=== PATIENT | female | born 1960 | race Caucasian/White ===

== ENCOUNTER 2023-03-06 13:26 | Observation (INO) ==
--- NOTE | 2023-03-06 13:48 | Emergency Department Note ---
ED Provider Note History of Present Illness Chief Complaint: Fall Stated Complaint: FALL, LAC Time Seen by Provider: 03/06/23 13:48 This is a [id number] 63-year-old female who presents to the emergency department with injuries sustained secondary to a fall that occurred earlier today while hiking. She was walking along a trail when she slipped and slid several feet down a hill side impacting her elbow off a rock. She did not hit her head but does have some left-sided neck discomfort. She endorses a laceration to the back of her left elbow which is contaminated with debris. She did not think she was able to clean this out well enough so came to the emergency department. Has not taken anything for the pain yet. Does not believe she injured anything else, denies any chest pain, back pain, abdominal pain, difficulty walking or pain with walking, numbness tingling or weakness in her upper or lower extremities. She is unsure when her last tetanus shot was updated and believes it needs to be updated today. Does not take any blood thinners. Not immunocompromised. Home Medications Medication Instructions Recorded Confirmed Type Glucosamine 1 tab PO QAM 03/06/23 03/06/23 History Multi Vitamin 1 tab PO QAM 03/06/23 03/06/23 History Tums 2 tab PO HS 03/06/23 03/06/23 History biotin 1 tab PO QAM 03/06/23 03/06/23 History lisinopril 10 mg tablet 10 mg PO QAM 03/06/23 03/06/23 History omeprazole 20 mg capsule,delayed 20 mg PO QAM 03/06/23 03/06/23 History release Allergies Allergy/AdvReac Type Severity Reaction Status Date / Time No Known Allergies Allergy Unverified 03/06/23 18:07 Past Med/Surg History Social History Smoking Status: Never smoker Preferred Language: Emir[place] Feels Safe at Home: Yes Physical Exam Vital Signs Vital Signs - 24 hr 03/06/23 13:39 Temperature 98.6 F Temperature Source Temporal Artery Scan Pulse Rate 54 L Respiratory Rate 20 Respiratory Effort / Characteristics Non-Labored Spontaneous Respiratory Depth Normal Respiratory Pattern Regular Blood Pressure 145/88 H Blood Pressure Mean 107 Blood Pressure Position Sitting Pulse Oximetry 97 Oxygen Delivery Method Room Air Sepsis Recent Fever Within 48 Hours No Sepsis New/Unexplained Change in Mental Status No Sepsis Action Taken by Nursing No Action Required CONSTITUTIONAL: Well developed, well nourished, in no acute distress. HEAD: Normocephalic, atraumatic. No Mcgraw's sign or raccoon eyes. No bony skull deformities. EYES: PERRL, conjunctivae normal, extraocular muscles intact. EARS/NOSE/MOUTH/THROAT: External ears no injury, no hemotympanum, no drainage. Nose with no injury or epistaxis. No dental abnormalities. No oral injuries. NECK: Patient able to rotate bilaterally. There is some reproducible tenderness on the left side of the neck towards the base. There is no midline spinous process tenderness. RESPIRATORY: Breathing unlabored and symmetric. Lungs clear to auscultation bilaterally. CARDIOVASCULAR: Regular rate and rhythm. No murmurs, rubs, or gallops. CHEST: Nontender, no crepitus or ecchymosis. ABDOMEN: Normal bowel sounds. Soft, nontender. No masses or ecchymosis. No rigidity. MUSCULOSKELETAL: Moves right upper and bilateral lower extremities at all joints without pain or difficulty. Pelvis stable, nontender. Preserved straight leg raise bilaterally. Left upper extremity: Reproducible tenderness in the left trapezius musculature. There is a deep open wound over the posterior elbow overlying the olecranon region. This is heavily contaminated with organic material and appears to be deep possibly infiltrating into the joint. There is associated tenderness in this region. Patient able to actively flex and extend at the elbow. Wrist and fingers with full range of motion no additional injury identified in this extremity. SKIN: [place], warm, dry. NEUROLOGIC: Alert and oriented x 3. GCS 15. CN II-XII intact. Strength 5+ in bilateral upper and lower extremities. Sensation intact in bilateral upper and lower extremities. PSYCHIATRIC: Appropriate. Normal affect. Course Administered Medications Oxycodone/Acetaminophen (Oxycodone/Acetaminophen 5mg/325mg Tab) 1 - 2 tab PO Q4H PRN PRN Reason: Pain Stop: 03/20/23 17:37 Last Admin: 03/06/23 18:50 Dose: 1 tab Documented By: NA Discontinued Medications Acetaminophen (Acetaminophen 500 Mg Tab) 1,000 mg PO NOW STA Stop: 03/06/23 14:02 Last Admin: 03/06/23 14:35 Dose: 1,000 mg Documented By: TBS Diphtheria/Pertussis/Tetanus Vacc (Diphtheria/Tetanus/Pertussis Vaccine (Tdap, Age 7+Yrs) 0.5ml Syr/Vl) 0.5 ml IM .ONCE ONE Stop: 03/06/23 14:02 Last Admin: 03/06/23 14:36 Dose: 0.5 ml Documented By: FALGUNI Cefazolin Sodium (Ancef 2000mg) 2,000 mg in 15 mls @ 3.75 mls/min IV NOW STA Stop: 03/06/23 15:26 Last Admin: 03/06/23 15:41 Dose: 3.75 mls/min Documented By: CANDI Lidocaine/Epinephrine (Lido/Epinephrine/Sod Bicarb 50 Ml Vial) 5 ml INFIL NOW ONE Stop: 03/06/23 14:51 Last Admin: 03/06/23 15:13 Dose: 5 ml Documented By: [id number] Lorazepam (Lorazepam 2 Mg/1 Ml Vial) Confirm Administered Dose 2 mg .ROUTE .STK- MED ONE Stop: 03/06/23 16:25 Last Admin: 03/06/23 16:31 Dose: Not Given Documented By: CANDI Lorazepam (Lorazepam 2 Mg/1 Ml Vial) 0.5 mg IV NOW STA Stop: 03/06/23 16:31 Last Admin: 03/06/23 16:31 Dose: 0.5 mg Documented By: CANDI Miscellaneous Information (Patient's Allergy Info Needs Entered) 1 each N/A Q30M [facility] Stop: 04/05/23 17:59 Last Admin: 03/06/23 18:07 Dose: Not Given Documented By: Admin: 03/06/23 17:58 Dose: 1 each Documented By: CANDI Medical Decision Making Differential Diagnosis Fracture, dislocation, subluxation, open joint, laceration, foreign body, c ontusion, hematoma, sprain, strain, intracranial hemorrhage, among other pathology Imaging Data Radiologist's Impression: Cervical Spine CT 03/06/23 14:01 CT SCAN OF THE CERVICAL SPINE CLINICAL HISTORY: Fall. COMPARISON STUDY: No priors. TECHNIQUE: CT scan of the cervical spine is performed from the skull base to the upper thoracic spine. Images are reviewed in the axial, sagittal, and coronal planes. IV contrast was not administered for this examination. A dose lowering technique was utilized adhering to the principles of ALARA. CT DOSE: 1033.13 mGy.cm FINDINGS: Skeletal structures: The skeletal structures are osteopenic. There is no evidence of fracture or subluxation involving the cervical spine. 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 Vertebral body height and alignment are maintained. There is straightening of the cervical lordosis. Anterior osteophytes are seen throughout. The odontoid process and lateral masses are intact. The atlantoaxial articulation is preserved. The spinous processes appear intact. Intervertebral discs: There is mild to moderate disc space narrowing at C4-C5, C5-C6, and C6-C7. Central canal: Grossly patent. Soft tissues: The prevertebral and paraspinous soft tissues are within normal limits. There is mild atherosclerotic calcification of the carotid bulbs. The thyroid gland is mildly enlarged and heterogeneous. Calvarium: The visualized calvarium at the skull base appears intact. Brain parenchyma: Partially visualized brain parenchyma at the skull base is within normal limits. Sinuses and mastoids: The visualized paranasal sinuses are clear. The mastoid air cells are well pneumatized. Lung apices: Clear as visualized. IMPRESSION: There is no evidence of fracture or subluxation involving the cervical spine. ACT 112: Negative or not required by law. Electronically signed by: Vincent Lau M.D. 03/06/2023 3:19 PM Elbow X-Ray 03/06/23 14:01 XR elbow LT min 3V routine CLINICAL HISTORY: fall, posterior laceration contaminated COMPARISON: None FINDINGS: Alignment of the left elbow is anatomic. No acute fracture is identified. There is no evidence for a left elbow joint effusion. Note is made of a deep laceration of the posterior left elbow. Laceration appears to extend to the olecranon. Several punctate densities within the laceration are noted. IMPRESSION: 1. No acute fracture. No evidence for a left elbow joint effusion. 2. Left elbow laceration which appears to extend to the olecranon. Several punctate densities/debris within the laceration could be on or just deep to the skin. ACT 112: Negative or not required by law. Electronically signed by: Orlin Wood M.D. 03/06/2023 2:[address] 03/06/23 14:01 CT OF THE HEAD WITHOUT CONTRAST CLINICAL HISTORY: Fall, left sided neck pain COMPARISON STUDY: No previous studies for comparison. TECHNIQUE: Helical axial images of the head were obtained without IV contrast. Automated exposure control was utilized for the study. A dose lowering technique was utilized adhering to the principles of ALARA. FINDINGS: No acute intracranial hemorrhage, midline shift or mass effect is present. The ventricular system is unremarkable. The basal cisterns are patent. No extra-axial collections are present. There are no findings to suggest acute dural sinus thrombosis or acute territorial infarct. No significant calvarial abnormalities are present. Visualized portions of the sinuses and mastoid air cells are clear. IMPRESSION: 1. No acute intracranial findings. 2. No acute calvarial fracture. ACT 112: Negative or not required by law. Electronically signed by: Orlin Wood M.D. 03/06/2023 3:16 PM MDM Narrative This is a 63-year-old female who presents to the emergency department with a laceration to the left elbow heavily contaminated with organic debris as well as some mild left-sided neck pain secondary to a fall that occurred while hiking. See above for further details. Well-appearing in no acute distress. Does have some reproducible left-sided neck tenderness at the base of the neck. There is tenderness over the posterior elbow with an associated laceration overlying the joint which possibly communicates with the joint heavily contaminated with organic debris. She is neurovascularly intact. No additional injuries were identified. She was offered pain medication and accepted a dose of Tylenol, did not require stronger pain medication. Cool compress was administered. IV inserted, Ancef administered. She was given a small dose of Ativan for some mild anxiety. Tdap was updated. CT head and neck was obtained demonstrating no acute process. X-ray of the left elbow was obtained no acute fracture or evidence of left elbow joint effusion. Laceration appears to extend to the olecranon and there are several punctate densities within the laceration, there is no evidence of joint infiltration. I discussed with reading radiologist Dr. Wood whether CT of the elbow was indicated to rule out joint involvement, he feels confident there is no joint involvement, no CT required. Case was discussed with ED attending Dr. Swanson who evaluated patient at bedside. Due to depth and contamination of the patient's wound, case was initially reviewed with Dr. De La Torre (orthopedics on-call) who recommended washout in the emergency department, loose closure, splinting, and close follow-up with orthopedics. I anesthetized the wound with 8 mL lidocaine 1% with epinephrine to facilitate washout and closure. I used 1.5 L normal saline with a combination of Bailey pressure irrigation, manual saline irrigation, forcep removal, and scrubbing with gauze, however was unable to remove a significant amount of organic material which tracks deep into the patient's forearm distal to the wound. I spoke with Dr. De La Torre again and expressed my concerns that this wound would not be able to be properly irrigated/cleaned at the bedside and did not feel comfortable closing it with that much organic material still present in the wound. He is agreeable with admitting the patient overnight and will take the patient to the OR tomorrow for washout and debridement. He will place orders for admission. I discussed this with the patient and she was agreeable with this plan. A dressing of Vaseline gauze, Telfa nonstick gauze, roll gauze, Darrion wrap was applied to the elbow. Impression Laceration of elbow, left, complicated, Fall from slip, trip, or stumble, Strain of left trapezius muscle Discharge Plan Visit Data Chief Complaint: Fall Stated Complaint: FALL, LAC ED Provider: Reilly Swanson ED Midlevel Provider: Paul Sharp Discharge Problem: Laceration of elbow, left, complicated, Fall from slip, trip, or stumble, Strain of left trapezius muscle Patient Disposition: Admitted As Inpatient Condition: Good Discharge Instructions Interventions: ED Discharge Assessment Last Done: 03/06/23 20:17 Laceration of elbow, left, complicated Qualifiers: Encounter type: initial encounter Qualified Code(s): S51.012A - Laceration without foreign body of left elbow, initial encounter
[2023-03-06] MEDS ORDERED: DIPHTHERIA/TETANUS/PERTUSSIS Vaccine (Tdap, Age 7+yrs) 0.5mL SYR/VL IM ONE (14:01)
[2023-03-06] MEDS ORDERED: ACETAMINOPHEN 500 MG TAB PO STA (14:01)
--- NOTE | 2023-03-06 14:40 | XRay Report ---
XR elbow LT min 3V routine CLINICAL HISTORY: fall, posterior laceration contaminated COMPARISON: None FINDINGS: Alignment of the left elbow is anatomic. No acute fracture is identified. There is no evid ence for a left elbow joint effusion. Note is made of a deep laceration of the posterior left elbow. Laceration appears to extend to the olecranon. Several punctate densities within the laceration are n oted. IMPRESSION: 1. No acute fracture. No evidence for a left elbow joint effusion. 2. Left elbow laceration which appears to extend to the olecranon. Several punctate densities/debris within the laceration could be on or just deep to the skin. ACT 112: Negative or not required by law. Electronically signed by: Orlin Wood M.D. 03/06/2023 2:38 PM
[2023-03-06] MEDS ORDERED: LIDO/EPINEPHRINE/SOD BICARB 50 ML VIAL INFIL ONE (14:50)
--- NOTE | 2023-03-06 15:18 | CT Scan Report ---
CT OF THE HEAD WITHOUT CONTRAST CLINICAL HISTORY: Fall, left sided neck pain COMPARISON STUDY: No previous studies for comparison. TECHNIQUE: Helical axial images of the head were obtained without IV contrast. Automated exposure con trol was utilized for the study. A dose lowering technique was utilized adhering to the principles o f ALARA. FINDINGS: No acute intracranial hemorrhage, midline shift or mass effect is present. The ventricular system is unremarkable. The basal cisterns are patent. No extra-axial collections are present. There are no findings to suggest acute dural sinus thrombosis or acute territorial infarct. No significant calvarial abnormalities are present. Visualized portions of the sinuses and mastoid air cells are estefania ar. IMPRESSION: 1. No acute intracranial findings. 2. No acute calvarial fracture. ACT 112: Negative or not required by law. Electronically signed by: Orlin Wood M.D. 03/06/2023 3:16 PM
--- NOTE | 2023-03-06 15:21 | CT Scan Report ---
CT SCAN OF THE CERVICAL SPINE CLINICAL HISTORY: Fall. COMPARISON STUDY: No priors. TECHNIQUE: CT scan of the cervical spine is performed from the skull base to the upper thoracic spine . Images are reviewed in the axial, sagittal, and coronal planes. IV contrast was not administered fo r this examination. A dose lowering technique was utilized adhering to the principles of ALARA. CT DOSE: 1033.13 mGy.cm FINDINGS: Skeletal structures: The skeletal structures are osteopenic. There is no evidence of fracture or subl uxation involving the cervical spine. There is developmental absence of both the anterior and posteri or rings of C1. Vertebral body height and alignment are maintained. There is straightening of the cer vical lordosis. Anterior osteophytes are seen throughout. The odontoid process and lateral masses ar e intact. The atlantoaxial articulation is preserved. The spinous processes appear intact. Intervertebral discs: There is mild to moderate disc space narrowing at C4-C5, C5-C6, and C6-C7. Central canal: Grossly patent. Soft tissues: The prevertebral and paraspinous soft tissues are within normal limits. There is mild a therosclerotic calcification of the carotid bulbs. The thyroid gland is mildly enlarged and heterogen eous. Calvarium: The visualized calvarium at the skull base appears intact. Brain parenchyma: Partially visualized brain parenchyma at the skull base is within normal limits. Sinuses and mastoids: The visualized paranasal sinuses are clear. The mastoid air cells are well pneu matized. Lung apices: Clear as visualized. IMPRESSION: There is no evidence of fracture or subluxation involving the cervical spine. ACT 112: Negative or not required by law. Electronically signed by: Vincent Lau M.D. 03/06/2023 3:19 PM
[2023-03-06] MEDS ORDERED: ceFAZolin 2000MG 2,000 MG/15 ML SYR IV STA (15:23)
--- NOTE | 2023-03-06 15:54 | Emergency Department Note ---
ED Visit Note I have personally evaluated this patient examined her and reviewed the pertinent labs and data. I have discussed the case with Paul Sandoval, the physician patient clerical assistant and agree with the plan. Please refer to the PA note. This patient suffered a mechanical fall. On my exam she has a contaminated laceration over olecranon process. The x-ray is unremarkable. On my exam, she is neurologically neurovascular intact. we will plan to irrigate it out and give her antibiotics here as well as a prescription for home. She will need close follow-up. I talked her at length about observing for signs of infection such as redness, fever, pus drainage. .
[2023-03-06] MEDS ORDERED: LORazepam 2 MG/1 ML VIAL ONE (16:24)
[2023-03-06] MEDS ORDERED: LORazepam 2 MG/1 ML VIAL IV STA (16:30)
[2023-03-06] MEDS ORDERED: ONDANSETRON INJ 2 MG/ML 2 ML VIAL IV PRN (17:38)
[2023-03-06] MEDS: Patient's ALLERGY Info needs ENTERED SCH ×2 (17:58→18:07)
[2023-03-06] MEDS: oxyCODONE/ACETAMINOPHEN 5mg/325mg TAB PO PRN (18:50)
[2023-03-06] MEDS: ACETAMINOPHEN 325 MG TAB PO PRN (21:26)
[2023-03-07] MEDS: oxyCODONE/ACETAMINOPHEN 5mg/325mg TAB PO PRN ×2 (00:04→06:38)
[2023-03-07] MEDS: ACETAMINOPHEN 325 MG TAB PO PRN (03:59)
--- NOTE | 2023-03-07 09:15 | Anesthesiology Consultation ---
Date of Service March 07, 2023 Assessment & Plan Chart Review Chart Review: Acceptable Risk for Surgery and Patient NOT seen in Pre Admission Testing Consults Requested none ASA ASA2 Proposed Anesthesia Anesthesia Type: MAC (back up GA) Risk / Benefits Reviewed With: PT / POA / Parent / Guardian, Accepts Plan and Informed Consent Obtained History Surgery Operation Date: 03/07/23 09:05 Proposed Procedures p Left Elbow Incision and Drainage - Stevan De La Torre, DO Height/Weight Height: 5 ft 8 in Weight: 98.3 kg Allergies Allergy/AdvReac Type Severity Reaction Status Date / Time No Known Allergies Allergy Unverified 03/06/23 18:07 Medications Home Medications Medication Instructions Recorded Confirmed Last Taken Glucosamine 1 tab PO QAM 03/06/23 03/06/23 03/06/23 Multi Vitamin 1 tab PO QAM 03/06/23 03/06/23 03/06/23 Tums 2 tab PO HS 03/06/23 03/06/23 03/05/23 biotin 1 tab PO QAM 03/06/23 03/06/23 03/06/23 lisinopril 10 mg tablet 10 mg PO QAM 03/06/23 03/06/23 03/06/23 omeprazole 20 mg capsule,delayed 20 mg PO QAM 03/06/23 03/06/23 Unknown release Active Medications Generic Name Dose Route Start Last Admin Trade Name Freq PRN Reason Stop Dose Admin Acetaminophen 650 mg 03/06/23 17:38 03/07/23 03:59 Acetaminophen 325 Mg Tab PO 04/05/23 17:37 650 mg Q6H PRN Administration Fever or headache Oxycodone/Acetaminophen 1 - 2 tab 03/06/23 17:38 03/07/23 06:38 Oxycodone/Acetaminophen 5mg/325mg Tab PO 03/20/23 17:37 2 tab Q4H PRN Administration Pain NPO Date Last Intake of Fluids: 03/06/23 Time Last Intake of Fluids: 20:00 Date Last Intake of Solids: 03/06/23 Time Last Intake of Solids: 20:00 Exercise / Class Metabolic Activity II 4-5 Yardwork/Stairs/Walk up hill Past Anesthesia History No Hx of Anesthesia Complications and No Family Hx of Anesthesia Complications History of PONV No Hx of PONV and No Hx of Motion Sickness Social History Smoking Status: Never smoker Hx Alcohol Use: No Hx Substance Use: No Review of Systems ROS Unobtainable: All systems reviewed & are unremarkable except as noted in HPI & below Physical Exam Vital Signs Last Vital Signs Temp 36.8 C 03/07/23 07:18 Pulse 69 03/07/23 07:18 Resp 18 03/07/23 07:18 BP 115/73 03/07/23 07:18 Pulse Ox 93 03/07/23 07:18 O2 Del Method Room Air 03/07/23 07:18 ENMT Mouth: no TMJ abnormality Thyromental Distance: > or= 3.5 Finger Breadths Mallampati Class: II Neck normal visual inspection and trachea midline; neck extension not limited Respiratory normal respiratory effort Auscultation: lungs clear to auscultation bilaterally Cardiovascular Rate/Rhythm: regular rate and regular rhythm Heart Sounds: no murmur Musculoskeletal Spine: normal cervical ROM Extremities: full ROM of extremities Neurologic moves all extremities Psychiatric Orientation: alert and oriented x 3
[2023-03-07] MEDS ORDERED: fentaNYL citrate PF 100 MCG/2 ML VIAL IV PRN (09:20)
[2023-03-07] MEDS ORDERED: ATROPINE SULFATE 0.1 MG/ML 10ML SYR IV PRN (09:20)
[2023-03-07] MEDS ORDERED: ePHEDrine sulfate 50 MG/ML AMP IV PRN (09:20)
[2023-03-07] MEDS ORDERED: ONDANSETRON INJ 2 MG/ML 2 ML VIAL IV PRN ×2 (09:20→10:18)
[2023-03-07] MEDS ORDERED: fentaNYL citrate PF 100 MCG/2 ML VIAL ONE (09:33)
[2023-03-07] MEDS ORDERED: MIDAZOLAM HCL 1 MG/ML 2ML VIAL ONE (09:33)
--- NOTE | 2023-03-07 09:41 | History & Physical Bridge Note ---
Date of Service March 07, 2023 History & Physical Bridge Note I have examined the patient, reviewed the History & Physical and in the interval since the performance of the History & Physical I have noted the following changes of clinical significance: no changes noted. Met with the patient I had a discussion regarding risk benefits potential complications of left elbow irrigation and debridement. After reviewing these she elected to proceed with the procedure and written consent was obtained
--- NOTE | 2023-03-07 09:44 | History & Physical Report ---
Date of Service March 07, 2023 Assessment & Plan (1) Laceration of elbow, left, complicated: Plan: 63-year-old female with left elbow laceration -Pain control -Plan for left elbow irrigation and debridement Encounter type: initial encounter Qualified Code(s): S51.012A - Laceration without foreign body of left elbow, initial encounter Admission and Anticipated Discharge Date Admission Date: March 06, 2023 History of Present Illness Primary Care Provider: NO PCP . 63-year-old female [id number] presenting after sustaining a fall while hiking onto her left elbow. This resulted in an approximately 2 cm laceration over the tip of the olecranon. She was noted to have some contamination of the wound at the emergency department. Emergency room personnel was concerned due to the contaminated nature from debris in the novoa that this needed formal washout in the emergency department. Patient was admitted to orthopedic service for planned superficial washout Allergies Allergy/AdvReac Type Severity Reaction Status Date / Time No Known Allergies Allergy Unverified 03/06/23 18:07 Home Medications Medication Instructions Recorded Confirmed Type Glucosamine 1 tab PO QAM 03/06/23 03/06/23 History Multi Vitamin 1 tab PO QAM 03/06/23 03/06/23 History Tums 2 tab PO HS 03/06/23 03/06/23 History biotin 1 tab PO QAM 03/06/23 03/06/23 History lisinopril 10 mg tablet 10 mg PO QAM 03/06/23 03/06/23 History omeprazole 20 mg capsule,delayed 20 mg PO QAM 03/06/23 03/06/23 History release Past Med/Surg History Social History Smoking Status: Never smoker Hx Alcohol Use: No Hx Substance Use: No Preferred Language: Upper Sorbian Communication Ability: Effective Fitness Manager Required: No Beliefs That Will Affect Care: None Current Living Situation: Spouse Other Information That Helps Us Care for You: No Feels Safe at Home: Yes Safety Concerns: Feels Safe At This Time Assistive Devices: Glasses Physical Exam 2 Constitutional: Gen: NAD, AAOx3 Musculoskeletal: LUE - 2cm laceration over olecranon - silt a/m/r/u - elbow AROM: flexion 150, extension 0, 60 pronation, 60 supination - fires delt/bi/tri/wf/we/irineo + rad Results & Data Vital Signs (Past 12 Hours) Vital Signs Temp Pulse Resp BP Pulse Ox O2 Del Method 03/07/23 07:18 36.8 C 69 18 115/73 93 Room Air 03/06/23 21:43 121/77
[2023-03-07] MEDS ORDERED: BUPIVACAINE 0.25% PF 30 ML VIAL ONE (09:52)
[2023-03-07] MEDS ORDERED: traMADol HCL 50 MG TABLET PO PRN (10:18)
[2023-03-07] MEDS ORDERED: NALOXONE HCL 0.4 MG/1 ML VIAL/CARP IV PRN (10:18)
[2023-03-07] MEDS ORDERED: ONDANSETRON INJ 2 MG/ML 2 ML VIAL ONE (10:18)
[2023-03-07] MEDS ORDERED: PROPOFOL IV EMULSION 10 MG/ML 20 ML VIAL IV ONE (10:18)
[2023-03-07] MEDS ORDERED: METOCLOPRAMIDE HCL INJ 5 MG/ML 2 ML VIAL IV PRN (10:18)
[2023-03-07] MEDS ORDERED: MAGNESIUM HYDROXIDE SUSP 30 ML UDC PO PRN (10:18)
[2023-03-07] MEDS ORDERED: bisacodyL 10 MG SUPP PR PRN (10:18)
[2023-03-07] MEDS ORDERED: LIDOCAINE 2% 2 ML VIAL/AMP(20MG/ML) INFIL ONE (10:18)
--- NOTE | 2023-03-07 10:18 | Post Operative Brief Note ---
Immediate Post Op Note v1 Date of Surgery March 07, 2023 Pre & Post Diagnosis Operation Date: 03/07/23 09:05 Pre-Op Diagnosis: Elbow Laceration Post-Op Diagnosis: Elbow Laceration I identified the patient and participated in the time-out.: Yes Procedure Operation Date: 03/07/23 09:05 Actual Procedures p Left Elbow Incision and Drainage(Not Applicable) - Stevan De La Torre DO Surgeon Stevan De La Torre DO Investigator Narcotics none Estimated Blood Loss 2 Findings Consistent with Post-Op Diagnosis see dictation Complications none
--- NOTE | 2023-03-07 10:24 | Operative Report ---
Post Operative Report Pre & Post Diagnosis Operation Date: 03/07/23 09:05 Pre-Op Diagnosis: Elbow Laceration Post-Op Diagnosis: Elbow Laceration I identified the patient and participated in the time-out.: Yes Procedure Operation Date: 03/07/23 09:05 Actual Procedures p Left Elbow Incision and Drainage(Not Applicable) - Stevan De La Torre DO Surgeon Stevan De La Torre, Insurance Billing Specialist none Estimated Blood Loss 2 Findings Consistent with Post-Op Diagnosis see dictation Specimens none Complications none Indications 63-year-old female [id number] who fell yesterday while hiking and sustained a laceration of the posterior aspect of her left olecranon. Patient was seen in the emergency department. Emergency room personnel were concerned about the contamination of the wound and the patient needed a formal irrigation debridement in the operative suite. Patient was admitted under orthopedic service for planned left elbow irrigation and debridement. I met with the patient preoperatively and we do lengthy discussion regarding risk benefits potential complications of left elbow irrigation and debridement. After reviewing these she elected to proceed with surgical intervention and written consent was obtained Description of Procedure Patient was appropriate marked and identified in the preoperative holding area. Patient had previously received antibiotics. Patient was then taken back to the operative suite where they received anesthesia. The extremity was then prepped and draped in the standard orthopedic fashion. Timeout was then performed. 10 cc of local anesthetic was injected in the subcutaneous tissues to anesthetize the tissue surrounding the laceration. The area was then copiously irrigated with normal saline solution. A rongeur was used to debride any nonviable tissue and debris. Wound was noted to be completely superficial. There is no extension into the joint space. Subcutaneous tissues were then closed using 3-0 Vicryl followed by 3-0 nylon in an interrupted fashion for the skin. A sterile dressing of Xeroform 4 x 4 gauze web roll and Darrion wrap was then applied. Patient tolerated procedure well was taken to recovery room in hemodynamic stable condition I attest to the content of the Intraoperative Record and any orders documented therein. Any exceptions are noted below.
[2023-03-07] MEDS ORDERED: SODIUM CHLORIDE 0.9% 1,000 ML IV SCH (10:30)
--- NOTE | 2023-03-07 10:33 | Anesthesiology Progress Note ---
Date of Service March 07, 2023 Anesthesia Post Procedure Vital Signs Vital Signs: Temp Pulse Pulse Resp BP BP Pulse Ox 03/07/23 07:18 36.8 C 69 18 115/73 93 03/06/23 21:43 121/77 03/06/23 21:10 36.7 C 77 18 169/88 H 98 03/06/23 20:46 76 18 136/72 97 03/06/23 18:53 67 17 154/99 H 99 03/06/23 13:39 37 C 54 L 20 145/88 H 97 O2 Del Method 03/07/23 07:18 Room Air 03/06/23 21:43 03/06/23 21:10 Room Air 03/06/23 20:46 Room Air 03/06/23 18:53 Room Air 03/06/23 13:39 Room Air Pain Intensity Left Elbow: Pain Intensity: 7 Transfer of Care Handoff Completed per policy Notes Mental Status: alert / awake / arousable Patient Amnestic to Procedure: Yes Nausea / Vomiting: adequately controlled Pain: adequately controlled Airway Patency, RR, SpO2: stable & adequate BP & HR: stable & adequate Hydration State: stable & adequate Anesthetic Complications: no major complications apparent and Pt Satisfied with anesthetic care
[2023-03-07] MEDS ORDERED: ceFAZolin 2000MG 2,000 MG/15 ML SYR IV SCH (16:30)
[2023-03-07] MEDS ORDERED: SENNA 8.6 MG TAB PO SCH (21:00)
[2023-03-07] MEDS ORDERED: DOCUSATE SODIUM 100 MG CAP PO SCH (21:00)
[2023-03-08] MEDS ORDERED: MULTIVITAMIN TAB PO SCH (09:00)
--- NOTE | 2023-03-31 19:34 | Discharge Summary ---
Date of Service March 31, 2023 Admission HPI Per Admitting Provider . 63-year-old female [id number]-rstoacls presenting after sustaining a fall while hiking onto her left elbow. This resulted in an approximately 2 cm laceration over the tip of the olecranon. She was noted to have some contamination of the wound at the emergency department. Emergency room personnel was concerned due to the contaminated nature from debris in the novoa that this needed formal washout in the emergency department. Patient was admitted to orthopedic service for planned superficial washout Discharge Data Consultations 03/06/23 17:29 ED Decision to Admit Stat Procedures Performed Operation Date: 03/07/23 09:05 Actual Procedures p Left Elbow Incision and Drainage(Not Applicable) - Stevan De La Torre, Hospital Course (1) Laceration of elbow, left, complicated: 63-year-old female who fell while hiking sustaining superficial laceration of her left elbow. Emergency department was concerned that it was too contaminated washout emergency department therefore the patient was admitted to orthopedic service. Received antibiotics. Following day they underwent a superficial irrigation debridement with primary closure of the left elbow wound. He tolerated the procedure well. He is placed in a simple dressing. Patient is given oral antibiotics discharge home with proper discharge instructions. [place]up with local orthopedic group.
== END 2023-03-07 13:49 | disposition home or self-care (01) ==
LOC: ED 13:26 → INTOOBSV 17:39 → EDINP 17:39 → 3N 20:17